=== PATIENT | female | born 1990 | race Two or more races ===

== ENCOUNTER 2017-09-25 00:54 | Emergency (ER) | payer OTHER ==
[~2017-09-25] VITALS: Ht 152.4 cm; Wt 76.0 kg
[2017-09-25 01:12] VITALS: BP 102/65
== END 2017-09-25 04:00 | disposition left against medical advice (07) ==
LOC: ER 00:54
DX: Z53.21 Procedure and treatment not carried out due to patient leaving prior to being seen by health care provider (principal)